=== PATIENT | male | born 1965 | race Caucasian/White ===

== ENCOUNTER 2022-04-08 00:27 | Emergency (ER) | payer MEDICAID, OTHER, SELFPAY ==
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
[2022-04-08 00:30] VITALS: BP 185/111; PULSE 109; RESP 20; TEMP 36.8; O2SAT 98; BMI 25.8
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
[2022-04-08 03:37] VITALS: BP 162/87; PULSE 92; RESP 18; TEMP 36.9; O2SAT 98
[2022-04-08] MEDS: Ibuprofen 600 MG TABLET PO (03:45)
== END 2022-04-08 03:54 | disposition home or self-care (01) ==
PROVIDERS: Emergency Provider Internal Medicine
DX: S00.83XA Contusion of other part of head, initial encounter (principal); R51.9 Headache, unspecified; Y04.8XXA Assault by other bodily force, initial encounter; Y93.9 Activity, unspecified; Y92.9 Unspecified place or not applicable; Y99.9 Unspecified external cause status
CPT/HCPCS: 70450; 70486; 99283